=== PATIENT | male | born 1985 | race Caucasian/White ===

== ENCOUNTER 2016-12-20 18:56 | Emergency (ER) | payer BC ==
[~2016-12-20] VITALS: Ht 193 cm; Wt 88.5 kg
[~2016-12-20 18:56] MED LIST: HYDR1TAB PO
[2016-12-20] MEDS ORDERED: TETANUS,DIPTH,PERTUSS P/F (BOOSTRIX) 0.5 ML VIAL IM ONE (19:29)
[2016-12-20] MEDS ORDERED: LIDOCAINE 1% INJ 20 ML (XYLOCAINE) VIAL ONE (19:29)
--- NOTE | 2016-12-20 19:59 | ED General ---
General Chief Complaint: Laceration Stated Complaint: L HAND LACERATION Nursing Triage Note: Stated was cutting limbs and blade cut left thumb. bleeding controlled Nursing Sepsis Screen: No Definite Risk Source of Information: Patient Exam Limitations: No Limitations History of Present Illness Time Seen by Provider: 19:59 Allergies and Home Medications Allergies Coded Allergies: No Known Drug Allergies (Unverified , 12/20/16) Past Iecedqv-Eyefpb-Aermgm Hx Patient Social History Alcohol Use: Denies Use Recreational Drug Use: No Smoking Status: Never a Smoker 2nd Hand Smoke Exposure: No Recent Foreign Travel: No Contact w/Someone Who Travel: No Recent Infectious Disease Expo: No Recent Hopitalizations: No Immunizations Up To Date Tetanus Booster (TDap): More than 5yrs Seasonal Allergies Seasonal Allergies: No Physical Exam Vital Signs Vital Sign - Last 12Hours 12/20/16 19:24 Pulse 70 Resp 18 B/P (MAP) 125/86 Pulse Ox 99 Capillary Refill : Less Than 3 Seconds Progress/Results/Core Measures Results/Orders Vital Signs/I&O Vital Sign - Last 12Hours 12/20/16 19:24 Pulse 70 Resp 18 B/P (MAP) 125/86 Pulse Ox 99 Blood Pressure Mean: 99 Departure Impression Impression: Primary Impression: Laceration of hand Disposition: 01 HOME, SELF-CARE Condition: Improved Departure-Patient Inst. Decision time for Depature: 21:11 Referrals: NO,LOCAL PHYSICIAN (PCP/Family) Primary Care Physician Patient Instructions: Laceration Repair With Stitches (DC) Add. Discharge Instructions: All discharge instructions reviewed with patient and/or family. Voiced understanding. Medications as instructed. Ibuprofen 800 mg by mouth every 8 hours as needed for pain. Elevate the left hand on pillows. Ice pack for 20 minute intervals as needed. Return to the emergency department in 10 days for suture removal. Follow-up with your family practitioner if needed. Return to the emergency department immediately for worsened pain, redness, fever, drainage , or any other concerns. Scripts Hydrocodone/Acetaminophen (Hydrocodon -Acetaminophen 5-325) 1 Each Tablet 1 EACH PO Q4H Y for PAIN, #14 TAB 0 Refills Prov: ESETR WHALEN 12/20/16 Cephalexin (Cephalexin) 500 Mg Capsule 500 MG PO TID, #21 CAP 0 Refills Prov: ESTER WHALEN 12/20/16 ESTER WHALEN Dec 20, 2016 19:59
[2016-12-20] MEDS ORDERED: HYDR-3812 PO (21:13)
[2016-12-20] MEDS ORDERED: CEPH500C PO (21:13)
[2016-12-20] MEDS ORDERED: RX-CEPHALEXIN (KEFLEX) 250 MG CAP PPK#4 PO STA (21:14)
[2016-12-20] MEDS ORDERED: RX-HYDROCODONE/APAP 5/325 MG #4 TAB PK PO PRN (21:15)
[2016-12-20 21:30] VITALS: BP 118/72
--- OUTSIDE RECORDS SUMMARY | 2016-12-21 02:42 | XMS REPORT | Continuity of Care Document ---
Author Author [facility] Organization [facility] Address Unknown Phone Unavailable Allergies Active Description Code Type Severity Reaction Onset Reported/Identified Relationship to Patient Clinical Status Yes No Known Drug Allergies [id number] Drug Allergy Mild N/A 06/22/2009 Medications Problems Date Dx Coded Attending Type Code Diagnosis Diagnosed By 07/26/2014 CANDY MUNOZ APRN Ot 786.50 07/26/2014 CANDY MUNOZ APRN Ot V17.49 Procedures Results Encounters ACCT No. Visit Date/Time Discharge Status Pt. Type Provider Facility Loc./Unit Complaint [id number] 11/17/2013 13:23:00 2013 23:59:59 CLS Outpatient CANDY MUNOZ APRN [facility] CARD [id number] 07/26/2014 05:28:00 Document Registration
== END 2016-12-20 21:30 | disposition home or self-care (01) ==
LOC: EDUNIT# 18:56 → ER 18:58
DX: S61.012A Laceration without foreign body of left thumb without damage to nail, initial encounter (principal); W26.8XXA Contact with other sharp object(s), not elsewhere classified, initial encounter
CPT/HCPCS: 12013; 90471; 90715

== ENCOUNTER → 2022-01-07 | Outpatient (CLI) | payer BC ==
[~2022-01-07] MED LIST changes: +ACHD5005 PO; +CEPH500C PO
== END ==
LOC: CARD 12:56
PROVIDERS: ATTEND Nurse Practitioner Family
DX: R06.00 Dyspnea, unspecified (principal); R07.9 Chest pain, unspecified; Z82.49 Family history of ischemic heart disease and other diseases of the circulatory system
CPT/HCPCS: 93306